=== PATIENT | male | born 1930 | race Caucasian/White ===

== ENCOUNTER 2018-03-13 11:30 | Inpatient (IN) | payer MEDICARE, OTHER ==
[~2018-03-13] VITALS: Ht 175.3 cm; Wt 90.7 kg
[2018-03-13 13:04] LABS: MICROSCOPIC NOT IND
[2018-03-13] MEDS ORDERED: FURO-92 PO (13:07)
[2018-03-13] MEDS ORDERED: FLUN25SP NS (13:07)
[2018-03-13] MEDS ORDERED: ATOR10TA PO (13:07)
[2018-03-13] MEDS ORDERED: CARV6.252 PO (13:07)
[2018-03-13] MEDS ORDERED: POLY17PO29 PO (13:07)
[2018-03-13] MEDS ORDERED: OMEP-110 PO (13:07)
[2018-03-13] MEDS ORDERED: APIX5TAB PO (13:07)
[2018-03-13] MEDS ORDERED: ALLO100T64 PO (13:07)
[2018-03-13] MEDS ORDERED: MELO15TA24 PO (13:07)
[2018-03-13] MEDS ORDERED: ASPI-496 PO (13:07)
[2018-03-13] MEDS ORDERED: AMLO10TA8 PO (13:07)
[2018-03-13] MEDS ORDERED: PRAM0.5T PO (13:07)
[2018-03-13] MEDS ORDERED: LISI40TA PO (13:07)
[2018-03-13] MEDS ORDERED: TAMS-11 PO (13:07)
[2018-03-13] MEDS ORDERED: POTA10TA5 PO (13:07)
[2018-03-13 13:12] LABS: BASOPHILS # (AUTO) 0.03 x10^3/uL (0-0.1); BASOPHILS % (AUTO) 0 % (0-1); EOSINOPHILS # (AUTO) 0.15 x10^3/uL (0-0.4); EOSINOPHILS % (AUTO) 2 % (1-7); LYMPHOCYTES # (AUTO) 1.48 x10^3/uL (1-3.4); LYMPHOCYTES % (AUTO) 21 % (22-44); MD NO; MEAN CORPUSCULAR HEMOGLOBIN 29.6 pg (27.5-34.5); MEAN CORPUSCULAR HGB CONC 33.1 g/dL (33.2-36.2); MEAN CORPUSCULAR VOLUME 89.5 fL (81-97); MEAN PLATELET VOLUME 8.8 fL (7.4-10.4); MONOCYTES % (AUTO) 7 % (2-9); NEUTROPHILS # (AUTO) 4.76 x10^3/uL (1.8-6.8); NEUTROPHILS % (AUTO) 69 % (42-75); PLATELET COUNT 175 x10^3/uL (130-400); RED BLOOD COUNT 4.87 x10^6/uL (4.38-5.82); RED CELL DISTRIBUTION WIDTH 15.2 % (9.4-14.8)
[2018-03-13 13:23] LABS: INTERNATIONAL NORMALIZED RATIO 1.07 (0.93-1.1); PROTHROMBIN TIME 11.3 Seconds (9.6-11.5)
[2018-03-13 13:24] LABS: ALANINE AMINOTRANSFERASE 21 U/L (12-78); ALBUMIN 3.8 g/dL (3.4-5.0); ANION GAP 4 mmol/L (5-15); CALCIUM 8.6 mg/dL (8.5-10.1); CHLORIDE 110 mmol/L (98-107); CREATININE 1.49 mg/dL (0.7-1.3)
[2018-03-13 13:27] LABS: ALKALINE PHOSPHATASE 93 U/L (45-117); BILIRUBIN,TOTAL 0.7 mg/dL (0.2-1.0); TOTAL PROTEIN 6.8 g/dL (6.4-8.2)
[2018-03-13 13:35] LABS: HEMOGLOBIN A1C 6.2 % (4.2-6.3)
[2018-03-15] MEDS ORDERED: ALBUMIN HUMAN 5% 500 ML IV PRN (05:30)
[2018-03-15] MEDS ORDERED: VANCOMYCIN 1,500 MG in SODIUM CHLORIDE 0.9% 250 ML IVPB SCH (06:00)
[2018-03-15] MEDS ORDERED: METOPROLOL TARTRATE 25 MG TABLET PO SCH (06:00)
[2018-03-15] MEDS ORDERED: MUPIROCIN OINT 2%, 22GM NAS SCH (06:00)
[2018-03-15] MEDS ORDERED: CEFUROXIME 1.5 GM in SODIUM CHLORIDE 0.9% 100 ML IV SCH (06:00)
[2018-03-15] MEDS: MUPIROCIN OINT 2%, 22GM NAS SCH (06:24)
[2018-03-15] MEDS ORDERED: PAPAVERINE 30 MG/ML, 2ML ONE (07:09)
[2018-03-15] MEDS ORDERED: HEPARIN 1,000 UNITS/ML, 10ML ONE (07:09)
[2018-03-15] MEDS ORDERED: MIDAZOLAM 10MG/2 ML ONE (07:27)
[2018-03-15] MEDS ORDERED: FENTANYL PF 250 MCG/5ML ONE ×4 (07:27)
[2018-03-15] MEDS ORDERED: REGULAR INSULIN 62.5 UNITS in SODIUM CHLORIDE 0.9% 249.375 ML IV PRN ×2 (07:30→12:04)
[2018-03-15] MEDS ORDERED: DEXMEDETOMIDINE 200 MCG in SODIUM CHLORIDE 0.9% 48 ML IV SCH (07:30)
[2018-03-15] MEDS ORDERED: PHENYLEPHRINE 10 MG in SODIUM CHLORIDE 0.9% 249 ML IV PRN ×2 (07:30→12:04)
[2018-03-15] MEDS ORDERED: MANNITOL PMX 20% 500 ML IVPB PRN (07:30)
[2018-03-15] MEDS ORDERED: POTASSIUM CHLORIDE 80 MEQ, SODIUM BICARBONATE 8.4% 10 MEQ, MAGNESIUM SULFATE 0.5 GM, LI... IV PRN (07:30)
[2018-03-15] MEDS ORDERED: EPINEPHRINE 2 MG in SODIUM CHLORIDE 0.9% 248 ML IV SCH (07:30)
[2018-03-15] MEDS ORDERED: CEFUROXIME 1.5 GM ONE (07:56)
[2018-03-15] MEDS: DOCUSATE 100 MG CAPSULE PO SCH ×2 (09:00→21:00)
[2018-03-15] MEDS ORDERED: PROPOFOL 10 MG/ML, 20ML ONE (10:45)
[2018-03-15] MEDS ORDERED: PROTAMINE SULFATE 10 MG/ML, 25ML ONE ×2 (10:45)
[2018-03-15] MEDS ORDERED: AMINOCAPROIC ACID 250 MG/ML, 20ML ONE ×2 (10:45)
[2018-03-15] MEDS ORDERED: ROCURONIUM 10MG/ML,5ML ONE (10:45)
[2018-03-15] MEDS ORDERED: VASOPRESSIN 20 UNIT/ML, 1ML ONE (11:33)
[2018-03-15] MEDS ORDERED: LIDOCAINE 2% 100MG/5ML SYRINGE ONE (11:52)
[2018-03-15] MEDS ORDERED: HEPARIN 1,000 UNITS/ML, 30ML ONE (11:52)
[2018-03-15] MEDS ORDERED: SODIUM BICARBONATE 1 MEQ/ML, 50ML VIAL ONE ×2 (11:52→13:20)
[2018-03-15] MEDS ORDERED: ALBUMIN HUMAN 25% 50 ML ONE (11:53)
[2018-03-15] MEDS ORDERED: SODIUM CHLORIDE 0.9% 1,000 ML IV PRN (12:04)
[2018-03-15] MEDS ORDERED: DEXMEDETOMIDINE 200 MCG in SODIUM CHLORIDE 0.9% 48 ML IV PRN (12:04)
[2018-03-15] MEDS ORDERED: NITROGLYCERIN/D5W PMX 250 ML IV PRN (12:04)
[2018-03-15] MEDS ORDERED: DOBUTAMINE 250 MG in SODIUM CHLORIDE 0.9% 230 ML IV PRN (12:04)
[2018-03-15] MEDS ORDERED: VASOPRESSIN 50 UNIT in SODIUM CHLORIDE 0.9% 247.5 ML IV PRN (12:04)
[2018-03-15] MEDS ORDERED: BISACODYL 5 MG EC TABLET PO PRN (12:30)
[2018-03-15] MEDS ORDERED: GLUCAGON 1 MG IM PRN (12:30)
[2018-03-15] MEDS ORDERED: PROCHLORPERAZINE 5 MG/ML, 2ML IVPush PRN (12:30)
[2018-03-15] MEDS ORDERED: BISACODYL 10 MG SUPP PR PRN (12:30)
[2018-03-15] MEDS ORDERED: SODIUM BICARB 8.4%, 50ML SYRINGE IV PRN (12:30)
[2018-03-15] MEDS ORDERED: DEXTROSE 50%, 50ML SYRINGE IVPush PRN (12:30)
[2018-03-15] MEDS ORDERED: LACTATED RINGERS 1,000 ML IV PRN (12:30)
[2018-03-15] MEDS ORDERED: ACETAMINOPHEN 650 MG SUPP PR PRN (12:30)
[2018-03-15] MEDS ORDERED: EPINEPHRINE 2 MG in SODIUM CHLORIDE 0.9% 248 ML IV PRN (12:30)
[2018-03-15] MEDS: KSCALE TO 4.5 IV SCH ×2 (12:30→18:08)
[2018-03-15] MEDS: FUROSEMIDE 20 MG/2 ML IV SCH ×2 (12:30→18:27)
[2018-03-15 12:45] LABS: GLUCOSE BY BLOOD GAS ANALYZER 138 mg/dL (70-110); HEMOGLOBIN BY BLOOD GAS ANALYZ 11.7 g/dL (14.0-18.0)
[2018-03-15 12:54] LABS: INTERNATIONAL NORMALIZED RATIO 1.36 (0.93-1.1); PROTHROMBIN TIME 14.2 Seconds (9.6-11.5)
[2018-03-15] MEDS: MAGNESIUM SULFATE 1 GM in SODIUM CHLORIDE 0.9% 50 ML IVPB SCH (13:41)
[2018-03-15] MEDS ORDERED: MORPHINE SULFATE 4 MG/ML, 1ML ONE (14:49)
[2018-03-15] MEDS: morphine SULFATE 10 MG/ML, 1ML IVPush PRN (14:50)
[2018-03-15] MEDS: INSULIN LISPRO 100 UNITS/ML, PEN SQ-INSULIN SCH ×3 (15:41→23:00)
[2018-03-15] MEDS ORDERED: ALBUMIN HUMAN 25% 100 ML IV ONE (19:00)
[2018-03-15] MEDS: HYDROcodone/APAP 5/325 TABLET PO PRN (20:06)
[2018-03-15] MEDS: OXYcodone IR 5MG TABLET PO PRN (22:13)
[2018-03-15] MEDS: ACETAMINOPHEN 325 MG TABLET PO PRN (23:09)
[2018-03-16] MEDS: FUROSEMIDE 20 MG/2 ML IV SCH ×2 (00:10→06:30)
[2018-03-16] MEDS: KSCALE TO 4.5 IV SCH ×2 (00:30→06:05)
[2018-03-16] MEDS: OXYcodone IR 5MG TABLET PO PRN ×5 (02:54→21:32)
[2018-03-16] MEDS: INSULIN LISPRO 100 UNITS/ML, PEN SQ-INSULIN SCH ×5 (02:58→21:00)
[2018-03-16 04:28] LABS: BASOPHILS # (AUTO) 0.01 x10^3/uL (0-0.1); BASOPHILS % (AUTO) 0 % (0-1); EOSINOPHILS % (AUTO) 0 % (1-7); LYMPHOCYTES # (AUTO) 1.33 x10^3/uL (1-3.4); LYMPHOCYTES % (AUTO) 10 % (22-44); MD NO; MEAN CORPUSCULAR HEMOGLOBIN 29.3 pg (27.5-34.5); MEAN CORPUSCULAR HGB CONC 32.8 g/dL (33.2-36.2); MEAN CORPUSCULAR VOLUME 89.4 fL (81-97); MEAN PLATELET VOLUME 8.8 fL (7.4-10.4); MONOCYTES # (AUTO) 1.18 x10^3/uL (0.2-0.8); MONOCYTES % (AUTO) 9 % (2-9); NEUTROPHILS # (AUTO) 11.08 x10^3/uL (1.8-6.8); NEUTROPHILS % (AUTO) 82 % (42-75); PLATELET COUNT 138 x10^3/uL (130-400); RED BLOOD COUNT 3.44 x10^6/uL (4.38-5.82); RED CELL DISTRIBUTION WIDTH 15.1 % (9.4-14.8)
[2018-03-16 04:38] LABS: ALBUMIN 3.4 g/dL (3.4-5.0); ANION GAP 8 mmol/L (5-15); CALCIUM 7.8 mg/dL (8.5-10.1); CHLORIDE 114 mmol/L (98-107); CREATININE 1.54 mg/dL (0.7-1.3)
[2018-03-16] MEDS ORDERED: METOPROLOL TARTRATE 25 MG TABLET PO/NG SCH (09:00)
[2018-03-16] MEDS: DOCUSATE 100 MG CAPSULE PO SCH ×2 (09:29→21:22)
[2018-03-16] MEDS: ASPIRIN 81 MG TABLET EC PO SCH (09:29)
[2018-03-16] MEDS: HYDROcodone/APAP 5/325 TABLET PO PRN ×3 (09:29→18:40)
[2018-03-16] MEDS ORDERED: LACTULOSE 20 GM/30 ML UDC PO PRN (09:30)
[2018-03-16] MEDS: MUPIROCIN OINT 2%, 22GM NAS SCH ×2 (10:37→21:22)
[2018-03-16] MEDS: MAGNESIUM SULFATE 1 GM in SODIUM CHLORIDE 0.9% 50 ML IVPB SCH (12:10)
[2018-03-16] MEDS ORDERED: FUROSEMIDE 40 MG/4 ML IV ONE (13:30)
[2018-03-16] MEDS: METOPROLOL TARTRATE 25 MG TABLET PO/NG SCH ×2 (16:00→21:00)
[2018-03-16] MEDS: ATORVASTATIN 40 MG TABLET PO SCH (21:22)
[2018-03-16] MEDS: CHLORHEXIDINE 15 ML UDC MM SCH (21:22)
[2018-03-16] MEDS: SENNA/DOCUSATE TABLET PO SCH (21:22)
[2018-03-17] MEDS: OXYcodone IR 5MG TABLET PO PRN ×5 (02:28→21:20)
[2018-03-17 04:42] LABS: BASOPHILS # (AUTO) 0.01 x10^3/uL (0-0.1); BASOPHILS % (AUTO) 0 % (0-1); EOSINOPHILS # (AUTO) 0.11 x10^3/uL (0-0.4); EOSINOPHILS % (AUTO) 1 % (1-7); LYMPHOCYTES # (AUTO) 0.83 x10^3/uL (1-3.4); LYMPHOCYTES % (AUTO) 7 % (22-44); MD NO; MEAN CORPUSCULAR HEMOGLOBIN 30.4 pg (27.5-34.5); MEAN CORPUSCULAR HGB CONC 33.9 g/dL (33.2-36.2); MEAN CORPUSCULAR VOLUME 89.6 fL (81-97); MEAN PLATELET VOLUME 8.9 fL (7.4-10.4); MONOCYTES # (AUTO) 1.21 x10^3/uL (0.2-0.8); MONOCYTES % (AUTO) 10 % (2-9); NEUTROPHILS # (AUTO) 9.44 x10^3/uL (1.8-6.8); NEUTROPHILS % (AUTO) 81 % (42-75); PLATELET COUNT 103 x10^3/uL (130-400); RED BLOOD COUNT 3.32 x10^6/uL (4.38-5.82); RED CELL DISTRIBUTION WIDTH 15.6 % (9.4-14.8)
[2018-03-17 04:52] LABS: ANION GAP 7 mmol/L (5-15); CALCIUM 7.5 mg/dL (8.5-10.1); CHLORIDE 110 mmol/L (98-107); CREATININE 1.43 mg/dL (0.7-1.3)
[2018-03-17] MEDS ORDERED: DILTIAZEM 5 MG/ML, 5ML IVPush ONE (06:30)
[2018-03-17] MEDS: METOPROLOL TARTRATE 25 MG TABLET PO/NG SCH ×3 (06:32→21:19)
[2018-03-17] MEDS: INSULIN LISPRO 100 UNITS/ML, PEN SQ-INSULIN SCH ×4 (07:00→21:00)
[2018-03-17] MEDS ORDERED: POTASSIUM CHLORIDE 10 MEQ TABLET.ER PO SCH (09:00)
[2018-03-17] MEDS ORDERED: FUROSEMIDE 20 MG/2 ML IV ONE (09:00)
[2018-03-17] MEDS: CHLORHEXIDINE 15 ML UDC MM SCH ×2 (09:15→21:21)
[2018-03-17] MEDS: DOCUSATE 100 MG CAPSULE PO SCH ×2 (09:16→21:19)
[2018-03-17] MEDS: MUPIROCIN OINT 2%, 22GM NAS SCH (09:16)
[2018-03-17] MEDS: ASPIRIN 81 MG TABLET EC PO SCH (09:16)
[2018-03-17] MEDS ORDERED: AMIODARONE 150 MG in DEXTROSE 5% 100 ML IV ONE (10:00)
[2018-03-17] MEDS ORDERED: FILTER 0.22 MICRON IV ONE (10:00)
[2018-03-17] MEDS ORDERED: AMIODARONE 900 MG in DEXTROSE 5% 482 ML IV PRN (10:30)
[2018-03-17] MEDS: MAGNESIUM SULFATE 1 GM in SODIUM CHLORIDE 0.9% 50 ML IVPB SCH (12:50)
[2018-03-17] MEDS: ENOXAPARIN 40 MG/0.4 ML SQ SCH (16:24)
[2018-03-17] MEDS: FUROSEMIDE 20 MG/2 ML IV SCH (16:24)
[2018-03-17] MEDS: HYDROcodone/APAP 5/325 TABLET PO PRN ×2 (18:11→23:45)
[2018-03-17 20:00] VITALS: BP 99/46
[2018-03-17] MEDS: SENNA/DOCUSATE TABLET PO SCH (21:19)
[2018-03-17] MEDS: ATORVASTATIN 40 MG TABLET PO SCH (21:19)
[2018-03-18] MEDS: morphine SULFATE 10 MG/ML, 1ML IVPush PRN ×4 (00:49→20:50)
[2018-03-18 02:41] VITALS: BP 95/46
[2018-03-18 05:12] LABS: BASOPHILS # (AUTO) 0.02 x10^3/uL (0-0.1); BASOPHILS % (AUTO) 0 % (0-1); EOSINOPHILS # (AUTO) 0.22 x10^3/uL (0-0.4); EOSINOPHILS % (AUTO) 2 % (1-7); LYMPHOCYTES # (AUTO) 1.12 x10^3/uL (1-3.4); LYMPHOCYTES % (AUTO) 11 % (22-44); MD NO; MEAN CORPUSCULAR HGB CONC 33.7 g/dL (33.2-36.2); MEAN CORPUSCULAR VOLUME 89.2 fL (81-97); MEAN PLATELET VOLUME 8.7 fL (7.4-10.4); MONOCYTES % (AUTO) 12 % (2-9); NEUTROPHILS # (AUTO) 7.61 x10^3/uL (1.8-6.8); NEUTROPHILS % (AUTO) 75 % (42-75); PLATELET COUNT 103 x10^3/uL (130-400); RED BLOOD COUNT 3.07 x10^6/uL (4.38-5.82); RED CELL DISTRIBUTION WIDTH 15.6 % (9.4-14.8)
[2018-03-18 05:26] LABS: ANION GAP 6 mmol/L (5-15); CALCIUM 7.1 mg/dL (8.5-10.1); CHLORIDE 101 mmol/L (98-107); CREATININE 1.44 mg/dL (0.7-1.3)
[2018-03-18] MEDS: INSULIN LISPRO 100 UNITS/ML, PEN SQ-INSULIN SCH ×2 (05:51→11:00)
[2018-03-18 08:00] VITALS: BP 112/46
[2018-03-18] MEDS: DOCUSATE 100 MG CAPSULE PO SCH ×2 (08:43→19:10)
[2018-03-18] MEDS: FUROSEMIDE 20 MG/2 ML IV SCH (08:43)
[2018-03-18] MEDS: CHLORHEXIDINE 15 ML UDC MM SCH (08:43)
[2018-03-18] MEDS: HYDROcodone/APAP 5/325 TABLET PO PRN ×3 (08:43→19:41)
[2018-03-18] MEDS: METOPROLOL TARTRATE 25 MG TABLET PO/NG SCH ×2 (08:44→16:00)
[2018-03-18] MEDS: ASPIRIN 81 MG TABLET EC PO SCH (08:44)
[2018-03-18] MEDS: BISACODYL 10 MG SUPP PR SCH ×4 (11:38→21:43)
[2018-03-18 13:18] VITALS: BP 112/47
[2018-03-18] MEDS: ENOXAPARIN 40 MG/0.4 ML SQ SCH ×2 (16:32→17:09)
[2018-03-18] MEDS: FUROSEMIDE 40 MG/4 ML IV SCH (16:33)
[2018-03-18] MEDS ORDERED: AMIODARONE 150 MG in DEXTROSE 5% 100 ML IV ONE (18:30)
[2018-03-18] MEDS ORDERED: FILTER 0.22 MICRON IV PRN (19:30)
[2018-03-18] MEDS ORDERED: AMIODARONE 150 MG in DEXTROSE 5% 100 ML IV PRN (19:30)
[2018-03-18 20:00] VITALS: BP 109/55
[2018-03-18] MEDS: DIPHENHYDRAMINE 25 MG CAPSULE PO PRN (20:50)
[2018-03-18] MEDS: ATORVASTATIN 40 MG TABLET PO SCH (20:50)
[2018-03-18] MEDS: METOPROLOL TARTRATE 25 MG TABLET PO SCH (20:50)
[2018-03-19] MEDS: morphine SULFATE 10 MG/ML, 1ML IVPush PRN ×2 (01:54→02:57)
[2018-03-19 02:30] VITALS: BP 119/67
[2018-03-19 04:03] LABS: ALBUMIN 1.7 g/dL (3.4-5.0); ANION GAP 6 mmol/L (5-15); CHLORIDE 121 mmol/L (98-107); CREATININE 0.72 mg/dL (0.7-1.3)
[2018-03-19 04:37] LABS: BASOPHILS # (AUTO) 0.02 x10^3/uL (0-0.1); BASOPHILS % (AUTO) 0 % (0-1); EOSINOPHILS # (AUTO) 0.23 x10^3/uL (0-0.4); EOSINOPHILS % (AUTO) 3 % (1-7); LYMPHOCYTES # (AUTO) 0.72 x10^3/uL (1-3.4); LYMPHOCYTES % (AUTO) 9 % (22-44); MD NO; MEAN CORPUSCULAR HEMOGLOBIN 30.2 pg (27.5-34.5); MEAN CORPUSCULAR HGB CONC 33.8 g/dL (33.2-36.2); MEAN CORPUSCULAR VOLUME 89.3 fL (81-97); MEAN PLATELET VOLUME 9.3 fL (7.4-10.4); MONOCYTES # (AUTO) 0.88 x10^3/uL (0.2-0.8); MONOCYTES % (AUTO) 11 % (2-9); NEUTROPHILS # (AUTO) 5.98 x10^3/uL (1.8-6.8); NEUTROPHILS % (AUTO) 76 % (42-75); PLATELET COUNT 117 x10^3/uL (130-400); RED BLOOD COUNT 3.08 x10^6/uL (4.38-5.82); RED CELL DISTRIBUTION WIDTH 15.1 % (9.4-14.8)
[2018-03-19] MEDS: METOPROLOL TARTRATE 25 MG TABLET PO SCH ×4 (05:01→17:23)
[2018-03-19 05:09] LABS: CALCIUM 7.1 mg/dL (8.5-10.1); CHLORIDE 108 mmol/L (98-107)
[2018-03-19 05:13] LABS: ALBUMIN 2.5 g/dL (3.4-5.0); ANION GAP 7 mmol/L (5-15); CREATININE 1.15 mg/dL (0.7-1.3)
[2018-03-19 07:36] VITALS: BP 116/74
[2018-03-19] MEDS: DOCUSATE 100 MG CAPSULE PO SCH (07:43)
[2018-03-19] MEDS: FUROSEMIDE 40 MG/4 ML IV SCH (07:48)
[2018-03-19] MEDS: ASPIRIN 81 MG TABLET EC PO SCH (07:48)
[2018-03-19] MEDS: HYDROcodone/APAP 5/325 TABLET PO PRN ×2 (08:00→13:05)
[2018-03-19] MEDS ORDERED: ALBUTEROL SULFATE 2.5 MG/3 ML ONE (12:05)
[2018-03-19] MEDS ORDERED: ALBUTEROL SULFATE 2.5 MG/3 ML NPPB ONE (12:30)
[2018-03-19 13:56] VITALS: BP 117/67
[2018-03-19] MEDS: ENOXAPARIN 40 MG/0.4 ML SQ SCH (15:03)
[2018-03-19] MEDS ORDERED: ATROPINE SYRINGE 0.1 MG/ML, 10ML IVPush PRN (16:30)
[2018-03-19] MEDS: ATORVASTATIN 40 MG TABLET PO SCH (20:54)
[2018-03-19] MEDS: DIPHENHYDRAMINE 25 MG CAPSULE PO PRN (20:54)
[2018-03-19] MEDS ORDERED: FUROSEMIDE 40 MG/4 ML IV SCH (21:00)
[2018-03-20 04:29] LABS: BASOPHILS # (AUTO) 0.01 x10^3/uL (0-0.1); BASOPHILS % (AUTO) 0 % (0-1); EOSINOPHILS # (AUTO) 0.18 x10^3/uL (0-0.4); EOSINOPHILS % (AUTO) 3 % (1-7); LYMPHOCYTES % (AUTO) 13 % (22-44); MD NO; MEAN CORPUSCULAR HEMOGLOBIN 29.9 pg (27.5-34.5); MEAN CORPUSCULAR HGB CONC 33.1 g/dL (33.2-36.2); MEAN CORPUSCULAR VOLUME 90.3 fL (81-97); MEAN PLATELET VOLUME 8.4 fL (7.4-10.4); MONOCYTES # (AUTO) 0.92 x10^3/uL (0.2-0.8); MONOCYTES % (AUTO) 13 % (2-9); NEUTROPHILS # (AUTO) 5.01 x10^3/uL (1.8-6.8); NEUTROPHILS % (AUTO) 71 % (42-75); PLATELET COUNT 138 x10^3/uL (130-400); RED BLOOD COUNT 3.26 x10^6/uL (4.38-5.82); RED CELL DISTRIBUTION WIDTH 15.4 % (9.4-14.8)
[2018-03-20 04:37] LABS: ANION GAP 5 mmol/L (5-15); CALCIUM 7.9 mg/dL (8.5-10.1); CHLORIDE 104 mmol/L (98-107); CREATININE 1.06 mg/dL (0.7-1.3)
[2018-03-20 05:00] VITALS: BP 122/60
[2018-03-20] MEDS ORDERED: AMIODARONE 150 MG in DEXTROSE 5% 100 ML IV ONE (08:00)
[2018-03-20] MEDS ORDERED: ALBUTEROL SULFATE 2.5 MG/3 ML ONE (08:48)
[2018-03-20] MEDS ORDERED: ALBUTEROL SULFATE 2.5 MG/3 ML NPPB PRN (09:00)
[2018-03-20] MEDS: FUROSEMIDE 40 MG/4 ML IV SCH ×2 (09:06→20:36)
[2018-03-20] MEDS: POTASSIUM CHLORIDE 20 MEQ TAB.ER.PRT PO SCH ×2 (09:06→20:36)
[2018-03-20] MEDS: DOCUSATE 100 MG CAPSULE PO SCH (09:07)
[2018-03-20] MEDS: ASPIRIN 81 MG TABLET EC PO SCH (09:09)
[2018-03-20] MEDS ORDERED: SODIUM PHOSPHATE 10 MMOL in SODIUM CHLORIDE 0.9% 500 ML IV ONE (11:30)
[2018-03-20] MEDS: ENOXAPARIN 40 MG/0.4 ML SQ SCH (12:05)
[2018-03-20] MEDS ORDERED: CEFAZOLIN PMX 1GM/50ML 50 ML IVPB ONE (12:30)
[2018-03-20] MEDS ORDERED: MIDAZOLAM 1 MG/ML, 5ML ONE (13:53)
[2018-03-20] MEDS ORDERED: FENTANYL PF 250 MCG/5ML ONE (13:53)
[2018-03-20] MEDS ORDERED: CEFAZOLIN 1,000 MG ONE (13:54)
[2018-03-20] MEDS ORDERED: LIDOCAINE 1%, 20ML ONE (13:54)
[2018-03-20] MEDS ORDERED: ENOXAPARIN 40 MG/0.4 ML SQ SCH (15:18)
[2018-03-20] MEDS ORDERED: HOLD MEDICATION MC PRN (15:30)
[2018-03-20] MEDS ORDERED: HYDROcodone/APAP 5/325 TABLET PO PRN (15:30)
[2018-03-20] MEDS: SODIUM CHLORIDE FLUSH 10ML SYR IVF SCH (20:36)
[2018-03-20] MEDS: ATORVASTATIN 40 MG TABLET PO SCH (20:36)
[2018-03-20] MEDS: CEFAZOLIN PMX 1GM/50ML 50 ML IVPB SCH (21:56)
[2018-03-20] MEDS: ONDANSETRON 2MG/ML, 2ML IVPush PRN (22:42)
[2018-03-21] MEDS: DIPHENHYDRAMINE 25 MG CAPSULE PO PRN (00:29)
[2018-03-21] MEDS: HYDROcodone/APAP 5/325 TABLET PO PRN (03:19)
[2018-03-21] MEDS ORDERED: morphine SULFATE 10 MG/ML, 1ML ONE (03:58)
[2018-03-21] MEDS ORDERED: morphine SULFATE 10 MG/ML, 1ML IVPush PRN (04:00)
[2018-03-21] MEDS ORDERED: PROMETHAZINE 25 MG/ML, 1ML ONE (04:26)
[2018-03-21] MEDS ORDERED: PROMETHAZINE 25 MG/ML, 1ML IM ONE (04:30)
[2018-03-21 05:00] VITALS: BP 94/48
[2018-03-21] MEDS: CEFAZOLIN PMX 1GM/50ML 50 ML IVPB SCH ×2 (05:50→15:09)
[2018-03-21] MEDS: ASPIRIN 81 MG TABLET EC PO SCH (09:15)
[2018-03-21] MEDS: DOCUSATE 100 MG CAPSULE PO SCH (09:15)
[2018-03-21] MEDS: SODIUM CHLORIDE FLUSH 10ML SYR IVF SCH ×2 (09:25→21:36)
[2018-03-21 10:03] LABS: BASOPHILS # (AUTO) 0.05 x10^3/uL (0-0.1); BASOPHILS % (AUTO) 1 % (0-1); EOSINOPHILS # (AUTO) 0.34 x10^3/uL (0-0.4); EOSINOPHILS % (AUTO) 3 % (1-7); HEMOGRAM NOTE RECHECKED; LYMPHOCYTES # (AUTO) 1.12 x10^3/uL (1-3.4); LYMPHOCYTES % (AUTO) 11 % (22-44); MD NO; MEAN CORPUSCULAR HEMOGLOBIN 29.2 pg (27.5-34.5); MEAN CORPUSCULAR HGB CONC 32.4 g/dL (33.2-36.2); MEAN CORPUSCULAR VOLUME 90.1 fL (81-97); MEAN PLATELET VOLUME 8.8 fL (7.4-10.4); MONOCYTES # (AUTO) 1.16 x10^3/uL (0.2-0.8); MONOCYTES % (AUTO) 11 % (2-9); NEUTROPHILS # (AUTO) 8.03 x10^3/uL (1.8-6.8); NEUTROPHILS % (AUTO) 75 % (42-75); PLATELET COUNT 191 x10^3/uL (130-400); RED BLOOD COUNT 3.56 x10^6/uL (4.38-5.82); RED CELL DISTRIBUTION WIDTH 15.5 % (9.4-14.8)
[2018-03-21 10:04] LABS: ANION GAP 8 mmol/L (5-15); CHLORIDE 104 mmol/L (98-107); CREATININE 1.07 mg/dL (0.7-1.3)
[2018-03-21] MEDS ORDERED: PINK LADY ENEMA 490 ML BOTTLE PR ONE ×2 (10:30→12:00)
[2018-03-21] MEDS ORDERED: METOPROLOL 1 MG/ML, 5ML ONE (11:46)
[2018-03-21] MEDS ORDERED: METOPROLOL SUCCINATE 25 MG TAB.ER.24H ONE (11:56)
[2018-03-21] MEDS ORDERED: DIGOXIN 0.25 MG/ML, 2ML ONE (11:56)
[2018-03-21] MEDS ORDERED: METOPROLOL 1 MG/ML, 5ML IVPush ONE (12:00)
[2018-03-21] MEDS ORDERED: DIGOXIN 0.25 MG/ML, 2ML IVPush ONE (12:00)
[2018-03-21] MEDS ORDERED: DIGOXIN 0.25 MG/ML, 2ML IVPush SCH (12:00)
[2018-03-21] MEDS: METOPROLOL TARTRATE 25 MG TABLET PO SCH ×3 (12:21→18:16)
[2018-03-21] MEDS: ONDANSETRON 2MG/ML, 2ML IVPush PRN (14:05)
[2018-03-21] MEDS ORDERED: CEFAZOLIN PMX 1GM/50ML 50 ML IVPB ONE (15:00)
[2018-03-21] MEDS ORDERED: ENOXAPARIN 40 MG/0.4 ML SQ SCH (16:00)
[2018-03-21] MEDS: SODIUM CHLORIDE 0.9% 1,000 ML IV SCH (18:14)
[2018-03-21] MEDS: DIGOXIN 0.25 MG/ML, 2ML IVPush SCH (18:16)
[2018-03-21] MEDS: ATORVASTATIN 40 MG TABLET PO SCH (21:35)
[2018-03-22] MEDS: DIGOXIN 0.25 MG/ML, 2ML IVPush SCH ×2 (00:10→11:07)
[2018-03-22 04:40] LABS: BASOPHILS # (AUTO) 0.03 x10^3/uL (0-0.1); BASOPHILS % (AUTO) 0 % (0-1); EOSINOPHILS # (AUTO) 0.32 x10^3/uL (0-0.4); EOSINOPHILS % (AUTO) 3 % (1-7); LYMPHOCYTES # (AUTO) 1.07 x10^3/uL (1-3.4); LYMPHOCYTES % (AUTO) 9 % (22-44); MD NO; MEAN CORPUSCULAR HEMOGLOBIN 29.7 pg (27.5-34.5); MEAN CORPUSCULAR HGB CONC 33.2 g/dL (33.2-36.2); MEAN CORPUSCULAR VOLUME 89.7 fL (81-97); MONOCYTES # (AUTO) 1.01 x10^3/uL (0.2-0.8); MONOCYTES % (AUTO) 8 % (2-9); NEUTROPHILS # (AUTO) 9.77 x10^3/uL (1.8-6.8); NEUTROPHILS % (AUTO) 80 % (42-75); PLATELET COUNT 173 x10^3/uL (130-400); RED BLOOD COUNT 3.42 x10^6/uL (4.38-5.82)
[2018-03-22 04:49] LABS: ANION GAP 6 mmol/L (5-15); CALCIUM 7.8 mg/dL (8.5-10.1); CHLORIDE 109 mmol/L (98-107)
[2018-03-22 04:51] LABS: CREATININE 1.07 mg/dL (0.7-1.3)
[2018-03-22 05:29] VITALS: BP 124/57
[2018-03-22] MEDS: METOPROLOL TARTRATE 25 MG TABLET PO SCH (06:07)
[2018-03-22] MEDS: DOCUSATE 100 MG CAPSULE PO SCH (09:15)
[2018-03-22] MEDS: ASPIRIN 81 MG TABLET EC PO SCH (09:15)
[2018-03-22] MEDS: SODIUM CHLORIDE 0.9% 1,000 ML IV SCH (09:15)
[2018-03-22] MEDS: SODIUM CHLORIDE FLUSH 10ML SYR IVF SCH ×2 (09:16→21:35)
[2018-03-22] MEDS ORDERED: DILTIAZEM 125 MG in SODIUM CHLORIDE 0.9% 100 ML IV SCH (10:30)
[2018-03-22] MEDS: D5%-0.45% NACL 1,000 ML IV SCH (13:29)
[2018-03-22] MEDS: ENOXAPARIN 100 MG/ML SQ SCH (18:35)
[2018-03-23] MEDS: D5%-0.45% NACL 1,000 ML IV SCH ×2 (03:06→20:17)
[2018-03-23 05:14] VITALS: BP 131/57
[2018-03-23] MEDS: ENOXAPARIN 100 MG/ML SQ SCH (06:34)
[2018-03-23] MEDS: DOCUSATE 100 MG CAPSULE PO SCH (08:43)
[2018-03-23] MEDS: DIGOXIN 0.25 MG/ML, 2ML IVPush SCH (08:43)
[2018-03-23] MEDS: ASPIRIN 81 MG TABLET EC PO SCH (08:43)
[2018-03-23] MEDS: SODIUM CHLORIDE FLUSH 10ML SYR IVF SCH ×2 (08:43→20:10)
[2018-03-23] MEDS: BISACODYL 10 MG SUPP PR SCH ×2 (09:00→20:10)
[2018-03-23] MEDS ORDERED: HEPARIN wt. based STROKE protocol MC PRN (11:00)
[2018-03-23] MEDS ORDERED: HEPARIN 25,000 UNITS/500ML PMX 500 ML ONE (12:10)
[2018-03-23] MEDS ORDERED: HEPARIN 25,000 UNITS/500ML PMX 500 ML IV PRN (18:30)
[2018-03-23] MEDS ORDERED: HEPARIN 5,000 UNITS/ML, 1ML IV PRN (21:30)
[2018-03-24 02:09] LABS: BASOPHILS # (AUTO) 0.04 x10^3/uL (0-0.1); BASOPHILS % (AUTO) 0 % (0-1); EOSINOPHILS % (AUTO) 4 % (1-7); LYMPHOCYTES # (AUTO) 1.22 x10^3/uL (1-3.4); LYMPHOCYTES % (AUTO) 13 % (22-44); MD NO; MEAN CORPUSCULAR HEMOGLOBIN 29.8 pg (27.5-34.5); MEAN CORPUSCULAR HGB CONC 33.5 g/dL (33.2-36.2); MEAN CORPUSCULAR VOLUME 89.1 fL (81-97); MEAN PLATELET VOLUME 8.3 fL (7.4-10.4); MONOCYTES # (AUTO) 0.77 x10^3/uL (0.2-0.8); MONOCYTES % (AUTO) 8 % (2-9); NEUTROPHILS # (AUTO) 7.27 x10^3/uL (1.8-6.8); NEUTROPHILS % (AUTO) 75 % (42-75); PLATELET COUNT 241 x10^3/uL (130-400); RED BLOOD COUNT 3.36 x10^6/uL (4.38-5.82); RED CELL DISTRIBUTION WIDTH 15.3 % (9.4-14.8)
[2018-03-24 02:17] LABS: ANION GAP 3 mmol/L (5-15); CALCIUM 7.6 mg/dL (8.5-10.1); CHLORIDE 110 mmol/L (98-107); CREATININE 0.91 mg/dL (0.7-1.3)
[2018-03-24 05:09] VITALS: BP 131/91
[2018-03-24] MEDS: SODIUM CHLORIDE FLUSH 10ML SYR IVF SCH ×2 (09:21→20:21)
[2018-03-24] MEDS: ENOXAPARIN 100 MG/ML SQ SCH ×2 (09:21→20:21)
[2018-03-24] MEDS: DOCUSATE 100 MG CAPSULE PO SCH (09:22)
[2018-03-24] MEDS: BISACODYL 10 MG SUPP PR SCH ×2 (09:22→20:20)
[2018-03-24] MEDS: DIGOXIN 0.25 MG/ML, 2ML IVPush SCH (09:22)
[2018-03-24] MEDS: ASPIRIN 81 MG TABLET EC PO SCH (09:22)
[2018-03-24] MEDS: METOPROLOL TARTRATE 25 MG TABLET PO SCH ×2 (09:24→17:48)
[2018-03-24] MEDS: D5%-0.45% NACL 1,000 ML IV SCH (15:00)
[2018-03-24] MEDS: PRAMIPEXOLE 0.5MG TABLET PO PRN (23:27)
[2018-03-25] MEDS: METOPROLOL TARTRATE 25 MG TABLET PO SCH ×4 (01:10→23:52)
[2018-03-25] MEDS: ACETAMINOPHEN 325 MG TABLET PO PRN ×3 (01:13→17:25)
[2018-03-25 04:17] VITALS: BP 152/72
[2018-03-25] MEDS: DOCUSATE 100 MG CAPSULE PO SCH (08:08)
[2018-03-25] MEDS: ENOXAPARIN 100 MG/ML SQ SCH ×2 (08:08→20:18)
[2018-03-25] MEDS: BISACODYL 10 MG SUPP PR SCH ×2 (08:09→21:00)
[2018-03-25] MEDS: DIGOXIN 0.25 MG/ML, 2ML IVPush SCH (08:09)
[2018-03-25] MEDS: SODIUM CHLORIDE FLUSH 10ML SYR IVF SCH ×2 (08:10→20:17)
[2018-03-25] MEDS: ASPIRIN 81 MG TABLET EC PO SCH (08:14)
[2018-03-25] MEDS: LACTOBACILLUS CHEW TABLET PO SCH ×2 (17:18→20:16)
[2018-03-25] MEDS: SULFAMETH./TRIMETHOPRIM DS 800MG/160MG TABLET PO SCH (20:17)
[2018-03-25] MEDS: DOXYCYCLINE 100MG TABLET PO SCH (20:17)
[2018-03-26] MEDS: PRAMIPEXOLE 0.5MG TABLET PO PRN (00:47)
[2018-03-26 04:00] VITALS: BP 145/65
[2018-03-26] MEDS: SULFAMETH./TRIMETHOPRIM DS 800MG/160MG TABLET PO SCH (07:25)
[2018-03-26] MEDS: DOXYCYCLINE 100MG TABLET PO SCH ×2 (07:25→20:43)
[2018-03-26] MEDS: LACTOBACILLUS CHEW TABLET PO SCH ×3 (07:25→20:43)
[2018-03-26] MEDS: ASPIRIN 81 MG TABLET EC PO SCH (07:25)
[2018-03-26] MEDS: ENOXAPARIN 100 MG/ML SQ SCH (07:25)
[2018-03-26] MEDS: DIGOXIN 0.25 MG/ML, 2ML IVPush SCH (07:26)
[2018-03-26] MEDS: BISACODYL 10 MG SUPP PR SCH ×2 (07:26→21:00)
[2018-03-26] MEDS: DOCUSATE 100 MG CAPSULE PO SCH (07:27)
[2018-03-26] MEDS: SODIUM CHLORIDE FLUSH 10ML SYR IVF SCH ×2 (07:28→20:43)
[2018-03-26] MEDS: METOPROLOL TARTRATE 25 MG TABLET PO SCH ×2 (07:28→17:23)
[2018-03-26 11:25] VITALS: BP 152/71
[2018-03-26 16:29] VITALS: BP 158/72
[2018-03-26] MEDS: CEPHALEXIN 500 MG CAPSULE PO SCH ×2 (17:33→20:43)
[2018-03-26 19:05] VITALS: BP 151/62
[2018-03-26] MEDS: APIXABAN 5 MG TABLET PO SCH (20:43)
[2018-03-27 00:59] VITALS: BP 155/76
[2018-03-27] MEDS: METOPROLOL TARTRATE 25 MG TABLET PO SCH ×3 (01:04→15:57)
[2018-03-27 05:34] LABS: BASOPHILS # (AUTO) 0.02 x10^3/uL (0-0.1); BASOPHILS % (AUTO) 0 % (0-1); EOSINOPHILS # (AUTO) 0.27 x10^3/uL (0-0.4); EOSINOPHILS % (AUTO) 3 % (1-7); LYMPHOCYTES # (AUTO) 0.92 x10^3/uL (1-3.4); LYMPHOCYTES % (AUTO) 11 % (22-44); MD NO; MEAN CORPUSCULAR HEMOGLOBIN 28.8 pg (27.5-34.5); MEAN CORPUSCULAR HGB CONC 32.3 g/dL (33.2-36.2); MEAN PLATELET VOLUME 8.1 fL (7.4-10.4); MONOCYTES # (AUTO) 0.62 x10^3/uL (0.2-0.8); MONOCYTES % (AUTO) 7 % (2-9); NEUTROPHILS # (AUTO) 6.93 x10^3/uL (1.8-6.8); NEUTROPHILS % (AUTO) 79 % (42-75); PLATELET COUNT 264 x10^3/uL (130-400); RED BLOOD COUNT 3.37 x10^6/uL (4.38-5.82); RED CELL DISTRIBUTION WIDTH 15.5 % (9.4-14.8)
[2018-03-27 05:44] LABS: % IRON SATURATION 16 % (20-55); ANION GAP 3 mmol/L (5-15); CALCIUM 8.3 mg/dL (8.5-10.1); CHLORIDE 106 mmol/L (98-107); CREATININE 0.88 mg/dL (0.7-1.3); IRON LEVEL 35 mcg/dL (65-175); TOTAL IRON BINDING CAPACITY 214 mcg/dL (250-450)
[2018-03-27 07:35] VITALS: BP 165/68
[2018-03-27] MEDS: BISACODYL 10 MG SUPP PR SCH (09:00)
[2018-03-27] MEDS: DOXYCYCLINE 100MG TABLET PO SCH (11:04)
[2018-03-27] MEDS: CEPHALEXIN 500 MG CAPSULE PO SCH ×2 (11:04→15:56)
[2018-03-27] MEDS: APIXABAN 5 MG TABLET PO SCH (11:05)
[2018-03-27] MEDS: LACTOBACILLUS CHEW TABLET PO SCH ×2 (11:05→15:56)
[2018-03-27] MEDS: DOCUSATE 100 MG CAPSULE PO SCH (11:05)
[2018-03-27] MEDS: DIGOXIN 0.25 MG/ML, 2ML IVPush SCH (11:05)
[2018-03-27] MEDS: ASPIRIN 81 MG TABLET EC PO SCH (11:05)
[2018-03-27] MEDS: SODIUM CHLORIDE FLUSH 10ML SYR IVF SCH (11:06)
[2018-03-27] MEDS ORDERED: LISINOPRIL 10 MG TABLET PO SCH (12:30)
[2018-03-27 16:02] VITALS: BP 151/63
[2018-03-27] MEDS ORDERED: DOXY100T PO (17:11)
[2018-03-27] MEDS ORDERED: LISI-167 PO (17:11)
[2018-03-27] MEDS ORDERED: ACID1TAB7 PO (17:11)
[2018-03-27] MEDS ORDERED: ASPI81TA45 PO (17:11)
[2018-03-27] MEDS ORDERED: PRAM0.5T5 PO (17:11)
[2018-03-27] MEDS ORDERED: METO25TA35 PO (17:11)
[2018-03-27] MEDS ORDERED: CEPH-376 PO (17:11)
[2018-03-27] MEDS ORDERED: DOCU-131 PO (17:11)
[2018-03-27] MEDS ORDERED: APIX5TAB PO (17:11)
[2018-03-27] MEDS ORDERED: DIGO125T PO (17:35)
[2018-03-28] MEDS ORDERED: DIGOXIN 0.125 MG TABLET PO SCH (09:00)
== END 2018-03-27 18:35 | disposition home or self-care (01) | DRG 235 ==
LOC: 5SO 03-15 04:17 → CSU 03-15 07:32 → ICU 03-17 15:36 → CCU 03-19 17:51 → 5SO 03-26 11:15
PROVIDERS: ADMIT Thoracic Surgery (Cardiothoracic Vascular Surgery); ATTEND Thoracic Surgery (Cardiothoracic Vascular Surgery)
PROC: 06BP4ZZ Excision of Right Saphenous Vein, Percutaneous Endoscopic Approach (ICD-10-PCS; 2018-03-15)
PROC: 021109W Bypass Coronary Artery, Two Arteries from Aorta with Autologous Venous Tissue, Open Approach (ICD-10-PCS; 2018-03-15)
PROC: 5A1221Z Performance of Cardiac Output, Continuous (ICD-10-PCS; 2018-03-15)
PROC: B246ZZ4 Ultrasonography of Right and Left Heart, Transesophageal (ICD-10-PCS; 2018-03-15)
PROC: 02100Z9 Bypass Coronary Artery, One Artery from Left Internal Mammary, Open Approach (ICD-10-PCS; principal; 2018-03-15 08:00)
PROC: 02HV33Z Insertion of Infusion Device into Superior Vena Cava, Percutaneous Approach (ICD-10-PCS; 2018-03-17)
PROC: 02H63JZ Insertion of Pacemaker Lead into Right Atrium, Percutaneous Approach (ICD-10-PCS; 2018-03-20)
PROC: 02HK3JZ Insertion of Pacemaker Lead into Right Ventricle, Percutaneous Approach (ICD-10-PCS; 2018-03-20)
PROC: 0JH606Z Insertion of Pacemaker, Dual Chamber into Chest Subcutaneous Tissue and Fascia, Open Approach (ICD-10-PCS; 2018-03-20)
DX: I25.10 Atherosclerotic heart disease of native coronary artery without angina pectoris (principal); N17.0 Acute kidney failure with tubular necrosis; J96.90 Respiratory failure, unspecified, unspecified whether with hypoxia or hypercapnia; K56.7 Ileus, unspecified; Z99.11 Dependence on respirator [ventilator] status; I50.32 Chronic diastolic (congestive) heart failure; I48.92 Unspecified atrial flutter; D68.69 Other thrombophilia; K56.600 Partial intestinal obstruction, unspecified as to cause; E46 Unspecified protein-calorie malnutrition; J98.11 Atelectasis; N40.0 Benign prostatic hyperplasia without lower urinary tract symptoms; I87.2 Venous insufficiency (chronic) (peripheral); I48.0 Paroxysmal atrial fibrillation; E78.5 Hyperlipidemia, unspecified; E11.9 Type 2 diabetes mellitus without complications; I11.0 Hypertensive heart disease with heart failure; I49.5 Sick sinus syndrome; I08.1 Rheumatic disorders of both mitral and tricuspid valves; E87.6 Hypokalemia; D64.9 Anemia, unspecified; Z60.2 Problems related to living alone; Z82.49 Family history of ischemic heart disease and other diseases of the circulatory system; Z79.82 Long term (current) use of aspirin; Z79.01 Long term (current) use of anticoagulants; Z79.899 Other long term (current) drug therapy; Z87.891 Personal history of nicotine dependence; Z88.8 Allergy status to other drugs, medicaments and biological substances; Z68.29 Body mass index [BMI] 29.0-29.9, adult
CPT/HCPCS: 33208; 36415; 36600; 71045; 71046; 74018; 74250; 80048; 80053; 81003; 82040; 82330; 82800; 82803; 82810; 82947; 82962; 83036; 83540; 83550; 83735; 83880; 84100; 84132; 84295; 85014; 85018; 85025; 85049; 85347; 85520; 85610; 85730; 86850; 86900; 86923; 87040; 87081; 93005; 93306; 93312; 93321; 93325; 93970; 94002; 94640; 99156; 99157; C1779; C1785; C1892; G0378; J0690; J0697; J1644; J1650; J1815; J1940; J2250; J2405; J2704; J2720; J3010; J3475; J3480; J3490; J7613; P9045; P9047; C1751; J0171; J0282; J1160; J2270; J2370; J2440; J7030; J7040; J7050; J7060; Q0163